=== PATIENT | female | born 1955 | race Caucasian/White ===

== ENCOUNTER 2017-05-14 17:01 | Emergency (ER) | payer OTHER ==
[2017-05-14 17:45] VITALS: BP 151/99
--- NOTE | 2017-05-14 17:49 | UC ---
Neck Pain HPI - HPI Summary HPI Summary: 61 year old female presents with complains on neck spasm post surgery. - History of Current Complaint Chief Complaint: UCUpperExtremity Stated Complaint: NECK SPASMS Time Seen by Provider: 05/14/17 17:49 Hx Obtained From: Patient Onset/Duration Of Injury/Symptoms: Days Onset/Duration: Sudden Onset Severity: Moderate Pain Scale Used: 0-10 Numeric - 7 - Allergies/Home Medications Allergies/Adverse Reactions: Allergies Allergy/AdvReac Type Severity Reaction Status Date / Time Nortriptyline Allergy Palpitation Verified 05/14/17 17:45 s Piperacillin [From Zosyn] Allergy Hives Verified 05/14/17 17:45 Pregabalin [From Lyrica] Allergy See Comment Verified 05/14/17 17:45 Tazobactam [From Zosyn] Allergy Hives Verified 05/14/17 17:45 PMH/Surg Hx/FS Hx/Imm Hx Previously Healthy: Yes - Surgical History Surgical History: Yes Surgery Procedure, Year, and Place: d&c. LT breast surgery - lumps removed. LSP MICRO DISCECTOMY surgery - Social History Alcohol Use: Rare Substance Use Type: None Smoking Status (MU): Never Smoked Tobacco Review Of Systems Constitutional: Positive: Negative Skin: Positive: Negative Eyes: Positive: Negative ENT: Positive: Negative Respiratory: Positive: Negative Gastrointestinal: Positive: Negative Genitourinary: Positive: Negative Musculoskeletal: Positive: Other: - bilateral neck spasms Neurological: Positive: Negative Psychological: Positive: Negative All Other Systems Reviewed And Are Negative: Yes Physical Exam Triage Information Reviewed: Yes Vital Signs: Initial Vital Signs Temp 37.2 C 05/14/17 17:34 Pulse 95 05/14/17 17:34 Resp 16 05/14/17 17:34 BP 151/99 05/14/17 17:34 Pulse Ox 98 05/14/17 17:34 Vital Signs Reviewed: Yes Eye Exam: Normal ENT Exam: Normal Dental Exam: Normal Neck exam: Normal Neck: Positive: 1 Respiratory Exam: Normal Cardiovascular Exam: Normal Abdominal Exam: Normal Musculoskeletal Exam: Normal Neurological: Positive: Other: - bilateral neck spasm Psychological Exam: Normal Skin Exam: Normal Neck Pain Course/Dx - Differential Dx/Diagnosis Provider Diagnoses: bilateral nack spasms Discharge - Discharge Plan Condition: Stable Disposition: HOME Prescriptions: Meloxicam [Mobic] 7.5 mg PO BID #30 tab Methocarbamol TAB* [Robaxin 500 MG TAB*] 500 mg PO TID PRN #30 tab PRN Reason: Spasms - Neck Patient Education Materials: Muscle Spasm (ED) Referrals: Kasandra Alegria MD [Primary Care Provider] - Horace Alejandro [Physical Therapist] -
== END 2017-05-14 18:23 | disposition home or self-care (01) ==
LOC: UCCORT 17:01
DX: M62.838 Other muscle spasm (principal); Z88.8 Allergy status to other drugs, medicaments and biological substances; Z88.1 Allergy status to other antibiotic agents; Z88.0 Allergy status to penicillin
CPT/HCPCS: 99212; G0463

== ENCOUNTER 2019-02-01 21:15 | Emergency (ER) | payer OTHER ==
[2019-02-01 21:28] VITALS: BP 135/84
[2019-02-01] MEDS ORDERED: Acetaminophen TAB* 325 MG PO ONE (21:59)
--- NOTE | 2019-02-01 22:00 | UC ---
Knee Pain HPI - HPI Summary HPI Summary: 63-year-old female presents with complaints of left knee pain and swelling. States she was walking in her yard and she tripped over some steps that had been removed from her porch and fell to the ground directly onto her left knee in the grass. States she has been able to walk and bear weight since the injury. Reports difficult to bend her knee due to the swelling. Denies any numbness or tingling. - History of Current Complaint Chief Complaint: UCLowerExtremity Stated Complaint: FALL, LEFT KNEE SWELLING Time Seen by Provider: 02/01/19 21:37 Hx Obtained From: Patient Pain Intensity: 6 - Allergies/Home Medications Allergies/Adverse Reactions: Allergies Allergy/AdvReac Type Severity Reaction Status Date / Time MS Nortriptyline Allergy Palpitation Verified 02/01/19 21:29 [Nortriptyline] s MS Piperacillin [From Zosyn] Allergy Hives Verified 02/01/19 21:29 MS Pregabalin [From Lyrica] Allergy See Comment Verified 02/01/19 21:29 MS Tazobactam [From Zosyn] Allergy Hives Verified 02/01/19 21:29 Home Medications: Home Medications Aspirin/Caffeine [Olesya Aspirin Powder Pouches] 1 each PO DAILY 02/01/19 [ History Confirmed 02/01/19] PMH/Surg Hx/FS Hx/Imm Hx - Additional Past Medical History Additional PMH: Osteoarthritis Neurological History: Migraine - Surgical History Surgical History: Yes Surgery Procedure, Year, and Place: d&c. LT breast surgery - lumps removed. LSP MICRO DISCECTOMY surgery - Family History Known Family History: Positive: Non-Contributory - Social History Occupation: Works From/At Home Lives: With Family Alcohol Use: Rare Substance Use Type: None Smoking Status (MU): Never Smoked Tobacco Review of Systems All Other Systems Reviewed And Are Negative: Yes Constitutional: Positive: Negative Skin: Positive: Bruising ENT: Positive: Negative Respiratory: Positive: Negative Cardiovascular: Positive: Negative Gastrointestinal: Positive: Negative Genitourinary: Positive: Negative Motor: Negative: Weakness Neurovascular: Negative: Decreased Sensation Musculoskeletal: Positive: Decreased ROM, Other: - See HPI Neurological: Positive: Negative Is Patient Immunocompromised?: No Physical Exam - Summary Physical Exam Summary: GENERAL APPEARANCE: Well developed, well nourished, alert and cooperative, and appears to be in no acute distress. HEAD: Atraumatic. Normocephalic. NECK: Neck supple, non-tender. CARDIAC: Normal S1 and S2. No S3, S4 or murmurs. Rhythm is regular. There is no peripheral edema, cyanosis or pallor. Extremities are warm and well perfused. Capillary refill is less than 2 seconds. Peripheral pulses intact. LUNGS: Clear to auscultation without rales, rhonchi, wheezing or diminished breath sounds. ABDOMEN: Positive bowel sounds. Soft, nondistended, nontender. No guarding or rebound. No masses or hepatosplenomegally. MUSKULOSKELETAL: Normal muscular development. Limping gait. BACK: Examination of the spine reveals no spinal deformity or tenderness. EXTREMITIES: Tenderness over the left patella with ecchymosis, superficial abrasions, and a moderate edema. Has deformity. No laxity in the knee. Full flexion is limited due to the edema. Circulation and sensation are intact. SKIN: Skin normal color, texture and turgor. Triage Information Reviewed: Yes Vital Signs: Initial Vital Signs Temp 97.6 F 02/01/19 21:25 Pulse 71 02/01/19 21:25 Resp 17 02/01/19 21:25 BP 135/84 02/01/19 21:25 Pulse Ox 100 02/01/19 21:25 Vital Signs Reviewed: Yes Diagnostics - Radiology No standard instances Radiology Interpretation Completed By: ED Physician Summary of Radiographic Findings: No acute fracture or dislocation. Prepatellar edema. Knee Pain Course/Dx - Course Course Of Treatment: 63-year-old female presents with complaints of left knee pain and swelling. States she was walking in her yard and she tripped over some steps that had been removed from her porch and fell to the ground directly onto her left knee in the grass. States she has been able to walk and bear weight since the injury. Reports difficult to bend her knee due to the swelling. Denies any numbness or tingling. Afebrile. VSS. Patient had tenderness over the left patella with ecchymosis, superficial abrasions, and a moderate edema. Has deformity. No laxity in the knee. Full flexion is limited due to the edema. Circulation and sensation are intact. Preliminary reading of the x-ray showed no acute fracture. Recommending conservative treatment for a traumatic prepatellar bursitis including OTC analgesics and RICE. An ERVIN wrap was applied by the RN. She is to follow up with orthopedic surgery in 3-5 days if no improvement in symptoms. Anticipatory guidance and warning symptoms were reviewed with the patient. Verbalizes understanding and agrees with POC. - Differential Dx/Diagnosis Differential Diagnosis/HQI/PQRI: Contusion, Fracture (Closed), Internal Derangement Of Knee, Sprain Provider Diagnosis: Prepatellar bursitis, left knee, Left knee injury Discharge ED - Sign-Out/Discharge Documenting (check all that apply): Patient Departure All imaging exams completed and their final reports reviewed: No - Discharge Plan Condition: Stable Disposition: HOME Patient Education Materials: Knee Bursitis (ED) Referrals: Becyk Sun MD [Primary Care Provider] - Jeovany Mcclellan MD [Medical Doctor] - 3 Days (Call for appointment.) Additional Instructions: The x-ray performed in the clinic today showed no evidence of a fracture. I suspect that you have inflammation of the prepatellar bursa secondary to your fall. The x-ray will be reviewed by the radiologist tomorrow and we will contact you if they see anything that will change her plan of care. Rest the knee as much as possible. You may continue to walk and bear weight as tolerated. Use the Ervin wrap that was applied in the clinic to help reduce swelling. Apply ice to the affected area for 15-20 minutes at least 4 times a day to help with the pain and swelling. Elevate the leg to help reduce swelling. Take acetaminophen (Tylenol) or ibuprofen (Advil, Motrin) according to directions as needed for pain. Follow up with the orthopedic surgery in 3-5 days if symptoms do not improve. Call for appointment. Seek immediate medical attention if you have severe pain not managed with pain medication, you are unable to walk or bear any weight, develop numbness or tingling in the leg, foot, or toes, or have any worsening of symptoms. - Billing Disposition and Condition Condition: STABLE Disposition: Home
--- NOTE | 2019-02-02 13:27 | UC ---
- Progress Note Progress Note: xray report left knee : IMPRESSION: ANTERIOR SOFT TISSUE SWELLING, NO FRACTURE IS SEEN. Course/Dx - Diagnoses Provider Diagnoses: Prepatellar bursitis, left knee, Left knee injury Discharge ED - Sign-Out/Discharge Documenting (check all that apply): Patient Departure All imaging exams completed and their final reports reviewed: Yes - Discharge Plan Condition: Stable Disposition: HOME Patient Education Materials: Knee Bursitis (ED) Referrals: Jeovany Mcclellan MD [Medical Doctor] - 3 Days (Call for appointment.) Becky Sun MD [Primary Care Provider] - Additional Instructions: The x-ray performed in the clinic today showed no evidence of a fracture. I suspect that you have inflammation of the prepatellar bursa secondary to your fall. The x-ray will be reviewed by the radiologist tomorrow and we will contact you if they see anything that will change her plan of care. Rest the knee as much as possible. You may continue to walk and bear weight as tolerated. X Use the Ervin wrap that was applied in the clinic to help reduce swelling. Apply ice to the affected area for 15-20 minutes at least 4 times a day to help with the pain and swelling. Elevate the leg to help reduce swelling. Take acetaminophen (Tylenol) or ibuprofen (Advil, Motrin) according to directions as needed for pain. Follow up with the orthopedic surgery in 3-5 days if symptoms do not improve. Call for appointment. Seek immediate medical attention if you have severe pain not managed with pain medication, you are unable to walk or bear any weight, develop numbness or tingling in the leg, foot, or toes, or have any worsening of symptoms. - Billing Disposition and Condition Condition: STABLE Disposition: Home
== END 2019-02-01 22:10 | disposition home or self-care (01) ==
LOC: UCCORT 21:15
DX: M70.42 Prepatellar bursitis, left knee (principal); S89.92XA Unspecified injury of left lower leg, initial encounter; W18.09XA Striking against other object with subsequent fall, initial encounter; Y92.017 Garden or yard in single-family (private) house as the place of occurrence of the external cause; Z79.82 Long term (current) use of aspirin
CPT/HCPCS: 99212; A9270-GY; G0463

== ENCOUNTER 2019-05-23 11:38 | Emergency (ER) | payer OTHER ==
[2019-05-23 12:14] VITALS: BP 126/83
--- NOTE | 2019-05-23 12:38 | UC ---
Hand/Wrist HPI - HPI Summary HPI Summary: left wrist pain x 3 days pain is severe 7 out 10 worse with movement, twisting/ turning better with rest, ice, no known injury + mild swelling, - History Of Current Complaint Chief Complaint: UCUpperExtremity Stated Complaint: L HAND COMP Time Seen by Provider: 05/23/19 12:19 Hx Obtained From: Patient Onset/Duration: Gradual Onset, Lasting Days - 3, Still Present Severity Initially: Severe Severity Currently: Severe Pain Intensity: 8 Character Of Pain: Aching Aggravating Factor(s): Movement, Lifting, Flexion, Extension, Twisting, Pulling Alleviating Factor(s): Rest, Ice - Allergies/Home Medications Allergies/Adverse Reactions: Allergies Allergy/AdvReac Type Severity Reaction Status Date / Time nortriptyline Allergy Palpitation Verified 05/23/19 12:07 s piperacillin [From Zosyn] Allergy Hives Verified 05/23/19 12:07 pregabalin [From Lyrica] Allergy See Comment Verified 05/23/19 12:07 tazobactam [From Zosyn] Allergy Hives Verified 05/23/19 12:07 PMH/Surg Hx/FS Hx/Imm Hx Neurological History: Migraine Cancer History: Breast Cancer - Surgical History Surgical History: Yes Surgery Procedure, Year, and Place: d&c. LT breast surgery - lumps removed. LSP MICRO DISCECTOMY surgery - Family History Known Family History: Positive: Non-Contributory - Social History Alcohol Use: None Substance Use Type: None Smoking Status (MU): Never Smoked Tobacco Review of Systems All Other Systems Reviewed And Are Negative: Yes Constitutional: Positive: Negative Skin: Positive: Negative Eyes: Positive: Negative Is Patient Immunocompromised?: No Physical Exam Triage Information Reviewed: Yes Appearance: Well-Appearing, No Pain Distress, Well-Nourished Vital Signs: Initial Vital Signs Temp 98.6 F 05/23/19 12:08 Pulse 71 05/23/19 12:08 Resp 15 05/23/19 12:08 BP 126/83 05/23/19 12:08 Pulse Ox 96 05/23/19 12:08 Vital Signs Reviewed: Yes Eye Exam: Normal Eyes: Positive: Conjunctiva Clear ENT: Positive: Normal ENT inspection, Hearing grossly normal, Pharynx normal Neck: Positive: Supple Respiratory: Positive: Chest non-tender, Lungs clear, Normal breath sounds Cardiovascular: Positive: RRR, No Murmur, Pulses Normal Musculoskeletal: Positive: Other: - left wrist : + swelling, diffuse tenderness , limited ROM on flexion / extension , supination / pronation , limited Strength Diagnostics - Radiology No standard instances Radiology Interpretation Completed By: Radiologist Summary of Radiographic Findings: right wrist xray : IMPRESSION: #. 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 Hand/Wrist Course/Dx - Differential Dx/Diagnosis Provider Diagnosis: Tendonitis of wrist, left, Arthritis Discharge ED - Sign-Out/Discharge Documenting (check all that apply): Patient Departure All imaging exams completed and their final reports reviewed: Yes - Discharge Plan Condition: Stable Disposition: HOME Prescriptions: Naproxen [Naproxen 500 mg tab] 500 mg PO BID #20 tablet. Patient Education Materials: Tendinitis (ED) Referrals: Becky Sun MD [Primary Care Provider] - 7 Days - Billing Disposition and Condition Condition: STABLE Disposition: Home
== END 2019-05-23 13:05 | disposition home or self-care (01) ==
LOC: UCCORT 11:38
DX: M77.9 Enthesopathy, unspecified (principal); M19.032 Primary osteoarthritis, left wrist; M12.831 Other specific arthropathies, not elsewhere classified, right wrist; Z85.3 Personal history of malignant neoplasm of breast; Z88.8 Allergy status to other drugs, medicaments and biological substances; Z88.1 Allergy status to other antibiotic agents
CPT/HCPCS: 99213; G0463